=== PATIENT | male | born 1965 ===

== ENCOUNTER → 2016-04-14 | Day surgery (SDC) | payer MEDICARE, MEDICAID ==
--- NOTE | 2016-04-13 19:18 | Pre-op HX & Phy Repo 2 SIG ---
DATE OF ADMISSION: 04/14/2016 DATE OF SURGERY: 04/14/2016. PREOPERATIVE DIAGNOSIS: Massive recurrent vitreous hemorrhage, right eye. BRIEF NOTE: This is one of several [facility] admissions for this patient, who is a very nice 50-year-old gentleman with a long history of severe proliferative diabetic retinopathy. The patient has undergone extensive laser treatment in both eyes and vitrectomy surgery in the right eye in June 2014. He has done well since that time, but over the last few weeks developed a severe recurrence of his proliferative retinopathy and massive fall off vision. He is admitted for repeat vitrectomy on the right. PAST OCULAR HISTORY: Remarkable for prior injections as recently as two weeks ago with little clearing of the hemorrhage. PAST MEDICAL HISTORY: Remarkable for diabetes for at least 15 years. He has been on dialysis for the last several years. He had an amputation of the right leg in 2011. MEDICATIONS: Travatan as well as NovoLog insulin, vitamin D, and renal caps. ALLERGIES: He has no known allergies. PHYSICAL EXAMINATION: Best vision at admission was light perception with projection in the right eye and 20/30 in the left with pressures of 14 and 13. The anterior segments were quiet except for moderate nuclear sclerosis with cortical opacification, worse on the right. Fundus exam of the right eye could not be seen secondary to the dense vitreous hemorrhage. Ultrasonography showed the retina to be all attached with only diffuse hemorrhage in the posterior pole that was freely mobile. The left fundus showed extensive pattern of panretinal laser with the retina all attached. General physical examination be updated by Dr. Mobley. ASSESSMENT: 1. Dense recurrent vitreous hemorrhage, right eye. 2. Moderate cataracts both eyes. PLAN: The plan is to perform a pars plana vitrectomy with washout, extensive endolaser, membrane dissection as needed, and Avastin injection. The risks and benefits of surgery gone over the patient with potential infection, hemorrhage, worsening of the cataract, retinal detachment, remote possibility of loss of the eye. The risk of anesthesia was also discussed. The patient understands and consents to the surgery, which will be performed on tomorrow morning. Laz Perry M.D. DR: HERMAN JOB#: [id number] CC:
[2016-04-14] VITALS (8 sets, daily range): BP systolic 146–196; BP diastolic 80–99
[~2016-04-14] VITALS: Ht 177.8 cm; Wt 86.2 kg
[~2016-04-14] MED LIST: Alfentanil 2ml Inj ONE; Atropine Inj 1mg/10ml Syr IV PRN; Atropine Sulfate 3.5gm Oint ONE; Avastin 10mg Inj IVITRE ONE; BSS 15ml BTL ONE; BSS 500ml btl ONE; Bupivacaine 0.75% 30ml vial INJ ONE; CATAPRES0.1 MG ORAL; Cyclopentolate 1% Opth Sol ONE; Dexamethasone 4mg/ml vial ONE; DiphenhydrAMINE 50mg/ml Inj IVP PRN; EPINEPHrine 1mg/1ml Amp ONE; Flurbiprofen 0.03% Opth Sol 2.5ml ONE; Gatifloxacin Opth Solution 0.5% ONE; HUMALOG100 UNIT/4 SUBQ; Hydromorphone 0.5mg/0.5ml inj IVP PRN; Kenalog-10 5ml Inj ONE; Kenalog-40 1ml Vial ONE; Ketorolac 30mg Inj IV PRN; Ketorolac 60mg Inj IV PRN; LEVEMIR100 UNIT/1 SUBQ; LORazepam Inj 2mg/ml 1ml IV PRN; LR 1000ml 1,000 ML IVLG SCH; LR 1000ml ONE; Lidocaine 1% MPF 10mg/ml 5ml ONE; Lidocaine 2% MPF 5ml Vial INJ ONE; Maxitrol Opth Oint 3.5gm ONE; Meperidine 25mg/ml Inj IV PRN; Metoclopramide 10mg/2ml Inj IVP PRN; Midazolam 2mg/2ml Inj IVP PRN; Midazolam 2mg/2ml Inj ONE; NEPHROVITE1 TAB ORAL; NOVOLOG100 UNIT/3 SUBQ; NS Irrig 1000ml ONE; Norco 5mg/325mg tab ORAL PRN; Norco 7.5mg/325mg tab ORAL PRN; Oxycodone/Acetaminophen 5-325 ORAL PRN; Phenylephrine 2.5% Op Soln ONE; Povidone-Iodine 5% opth solution ONE; Pred Forte 1% Opth Susp 1ml ONE; Pred Forte 1% Opth Susp 1ml RIGHT EYE ONE; Propofol 10mg/ml 20ml IV ONE; Sterile Water Irrig 1000ml IRRIG ONE; Tetracaine 0.5% Opth Soln ONE; fentaNYL 100 mcg/2 mL IV PRN
[2016-04-14] MEDS: Cyclopentolate 1% Opth Sol RIGHT EYE SCH ×3 (07:17→07:34)
[2016-04-14] MEDS: Phenylephrine 2.5% Op Soln RIGHT EYE SCH ×3 (07:17→07:34)
[2016-04-14] MEDS: Flurbiprofen 0.03% Opth Sol 2.5ml RIGHT EYE SCH ×3 (07:17→07:34)
[2016-04-14] MEDS: Gatifloxacin Opth Solution 0.5% RIGHT EYE SCH ×3 (07:18→07:34)
[2016-04-14 07:40] LABS: BASOPHILS % (AUTO) 0.7 % (0.0-2.0); EOSINOPHILS % (AUTO) 6.5 % (0.0-3.0); LYMPHOCYTES % (AUTO) 23.1 % (20.0-45.0); MEAN CORPUSCULAR HEMOGLOBIN 32.4 PG (27.0-31.0); MEAN CORPUSCULAR HGB CONC 33.3 G/DL (32.0-36.0); MEAN CORPUSCULAR VOLUME 97 FL (80-99); MEAN PLATELET VOLUME 6.5 FL (6.5-10.1); MONOCYTES % (AUTO) 7.7 % (1.0-10.0); NEUTROPHILS % (AUTO) 62.1 % (45.0-75.0); PLATELET COUNT 202 K/UL (150-450); RED BLOOD COUNT 3.81 M/UL (4.70-6.10); RED CELL DISTRIBUTION WIDTH 12.2 % (11.6-14.8); WHITE BLOOD COUNT 9.6 K/UL (4.8-10.8)
[2016-04-14 07:44] LABS: CALCIUM 8.7 mg/dL (8.6-10.2); CREATININE 5.5 mg/dL (0.7-1.2); GLOMERULAR FILTRATION RATE 11.1 mL/min (>60); POTASSIUM 4.6 mEQ/L (3.4-4.9)
--- NOTE | 2016-04-14 07:53 | Pre-Procedure Note/Attestation ---
Pre-Procedure Note/Attestation Complete Prior to Procedure Planned Procedure: right Procedure Narrative: PPV, endolaser, membrane peel, Avastin OD Indications for Procedure Pre-Operative Diagnosis: Recurrent vitreous heme OD Attestation I attest that I discussed the nature of the procedure; its benefits; risks and complications; and alternatives (and the risks and benefits of such alternatives ), prior to the procedure, with the patient (or the patient's legal product representative). I attest that, if there was a reasonable possibility of needing a blood transfusion, the patient (or the patient's legal product representative) was given the [facility] standardized written summary, pursuant to the Anupam Rocio Blood Safety Act ([place] Health and Safety Code # 1645, as amended). I attest that I re-evaluated the patient just prior to the surgery and that there has been no change in the patient's H&P, except as documented below: BLAYNE MIKE Apr 14, 2016 07:53
--- NOTE | 2016-04-14 10:15 | Anethesia Preoperative Eval ---
Anesthesia Pre-op PMH/ROS General Date of Evaluation: Apr 14, 2016 Time of Evaluation: 10:04 Anesthesiologist: Greta ASA Score: ASA 3 Mallampati Score Class I : Soft palate, uvula, fauces, pillars visible Class II: Soft palate, uvula, fauces visible Class III: Soft palate, base of uvula visible Class IV: Only hard plate visible Mallampati Classification: Class III Surgeon: Orlando Diagnosis: Vitreous Hemorrhage OD Surgical Procedure: Vitrectiomy OD Anesthesia History: none Social History: smoking Family History: no anesthesia problems Allergies: Coded Allergies: No Known Allergies (Verified , 09/19/09) Medications: see eMAR Past Medical History Cardiovascular: Reports: HTN Pulmonary: Reports: other - Smoker Gastrointestinal/Genitourinary: Reports: ESRD Endocrine: Reports: DM HEENT: Reports: cataract (L), cataract (R), glaucoma Hematology/Immune: Reports: anemia PSxH Narrative: BKA, Shunts Anesthesia Pre-op Phys. Exam Physician Exam Last Vital Signs Date Time Temp Pulse Resp B/P Pulse Ox O2 Delivery O2 Flow Rate FiO2 04/14/16 07:44 97.8 77 17 154/99 99 Room Air Constitutional: NAD Neurologic: CN 2-12 intact Cardiovascular: RRR Respiratory: CTA Gastrointestinal: S/NT/ND Airway Exam Mallampati Score: Class III MO: full ROM: full Teeth: intact Anesthesia Pre-op A/P Labs Hematology Test 04/14/16 07:00 White Blood Count 9.6 K/UL (4.8-10.8) Red Blood Count 3.81 M/UL (4.70-6.10) L Hemoglobin 12.3 G/DL (14.2-18.0) L Hematocrit 37.1 % (42.0-52.0) L Mean Corpuscular Volume 97 FL (80-99) Mean Corpuscular Hemoglobin 32.4 PG (27.0-31.0) H Mean Corpuscular Hemoglobin Concent 33.3 G/DL (32.0-36.0) Red Cell Distribution Width 12.2 % (11.6-14.8) Platelet Count 202 K/UL (150-450) Mean Platelet Volume 6.5 FL (6.5-10.1) Neutrophils (%) (Auto) 62.1 % (45.0-75.0) Lymphocytes (%) (Auto) 23.1 % (20.0-45.0) Monocytes (%) (Auto) 7.7 % (1.0-10.0) Eosinophils (%) (Auto) 6.5 % (0.0-3.0) H Basophils (%) (Auto) 0.7 % (0.0-2.0) Chemistry Test 04/14/16 07:00 Sodium Level 139 mEQ/L (135-145) Potassium Level 4.6 mEQ/L (3.4-4.9) Chloride Level 91 mEQ/L (98-107) L Carbon Dioxide Level 35 mEQ/L (20-30) H Anion Gap 13 (5-15) Blood Urea Nitrogen 28 mg/dL (7-23) H Creatinine 5.5 mg/dL (0.7-1.2) H Estimat Glomerular Filtration Rate 11.1 mL/min (>60) Glucose Level 164 mg/dL (74-106) H Calcium Level 8.7 mg/dL (8.6-10.2) Risk Assessment & Plan Assessment: ASA 3 Plan: GA Status Change Before Surgery: Ramakrishna Martins MD Apr 14, 2016 10:15
--- NOTE | 2016-04-14 10:27 | Immediate Post-Op Evaluation ---
Immediate Post-Op Evalulation Immediate Post-Op Evalulation Procedure: Vitrectomy OD Date of Evaluation: Apr 14, 2016 Time of Evaluation: 10:59 IV Fluids: 400 NS Blood Products: 0 Estimated Blood Loss: 1 Urinary Output: 0 Blood Pressure Systolic: 146 Blood Pressure Diastolic: 95 Pulse Rate: 74 Respiratory Rate: 16 O2 Sat by Pulse Oximetry: 96 Temperature (Fahrenheit): 97.2 Pain Score (1-10): 1 Nausea: No Vomiting: No Complications 0 Patient Status: awake, reacts, patent, none Hydration Status: adequate Ramakrishna Hernandes MD Apr 14, 2016 10:27
--- NOTE | 2016-04-14 10:28 | 48 Hour Post Anesthesia Eval ---
Post Anesthesia Evaluation Procedure: Vitrectomy OD Date of Evaluation: Apr 14, 2016 Time of Evaluation: 13:08 Blood Pressure Systolic: 198 0: 87 Pulse Rate: 78 Respiratory Rate: 19 Temperature (Fahrenheit): 98 O2 Sat by Pulse Oximetry: 97 Airway: patent Nausea: No Vomiting: No Pain Intensity: 1 Hydration Status: adequate Cardiopulmonary Status: Stable Mental Status/LOC: patient returned to baseline Follow-up Care/Observations: 0 Post-Anesthesia Complications: 0 Follow-up care needed: ready to discharge Ramakrishna Hernandes MD Apr 14, 2016 10:28
--- NOTE | 2016-04-14 10:51 | Brief Operative Note ---
Immediate Post Operative Note Operative Note Chief Complaint: Clouds in vision R eye Pre-op Diagnosis: Recurrent vitreous heme OD Procedure: PPV, Endodaser 724 spots, Avastin injection 1.25 mg R eye Post-op Diagnosis: same as pre-op Surgeon: lissa Anesthesiologist: Jori Anesthesia: MAC Specimen: none Complications: none Condition: stable Estimated Blood Loss: none Drains: none Implant(s) used?: No BLAYNE MIKE Apr 14, 2016 10:51
[2016-04-14] MEDS: Labetalol 5mg/ml 20ml vial IV PRN ×2 (11:05→11:20)
--- NOTE | 2016-04-14 16:38 | Operative Note - Dictated ---
DATE OF OPERATION: 04/14/2016 PREOPERATIVE DIAGNOSIS: Vitreous hemorrhage, recurrent right eye. POSTOPERATIVE DIAGNOSIS: Vitreous hemorrhage, recurrent right eye. PROCEDURES: 1. Pars plana vitrectomy. 2. Vitreous washout. 3. Endolaser. 4. Avastin injection, right eye. SURGEON: Laz Perry M.D. AMMUNITION ASSEMBLY LABORER: None. ANESTHESIA: Local sedation. ANESTHESIOLOGIST: Dr. Hernandes. JUSTIFICATION FOR SURGERY: This 50-year-old gentleman with a long history of diabetic retinopathy and a prior vitrectomy developed a severe nonclearing vitreous hemorrhage in the right eye. BRIEF NOTE: The patient was brought to the operating room, placed on operating room table in supine position. After a time-out was performed and agreed upon by the staff and initial monitoring, he was secured by Dr. Hernandes a retrobulbar and Van Lint blocks were given in the standard way. When the blocks taken effect, he was prepped and draped in normal manner. A lid speculum inserted into the right eye. Using a 23-gauge trocar system cannulas were placed in all except infranasal quadrant. Infusion secured inferotemporally. Vitrectomy was begun posterior to the lens implant. Adherent vitreous and blood were removed followed by a peripheral vitrectomy leaving a small vitreous skirt. A very large amount of blood on the posterior surface of the retina was gently evacuated. Extensive endolaser was seen, but scleral depression showed far peripheral areas that were lightly treated. The endolaser was then brought to the eye and using a power of 0.3 veliz and duration 0.2 seconds, a total of 724 lesions were applied in the far periphery with the aid of scleral depression. No problems were encountered. The endolaser and a superior cannulas were then removed from the eye. Through the infusion cannula, a total of 1.25 mg of Avastin were injected. The eye was reinflated and this cannula were was removed. The wounds were noted to be self-sealing. Subconjunctival Decadron and gentamicin were then injected inferiorly and Maxitrol and atropine ointments were instilled. The eye was patched and shield placed and the patient was taken to recovery in excellent condition. There were no complications. Laz Perry M.D. DR: HERMAN JOB#: [id number] CC: Laz Perry M.D.
--- NOTE | 2016-04-14 17:17 | Pre-op HX & Phy Repo 2 SIG ---
DATE OF ADMISSION: 04/14/2016 REASON FOR EVALUATION: I was asked by Dr. Laz Perry to see this 50-year-old male, who is going for elective surgery of the right eye. The patient has vitreous hemorrhage, right eye. The patient was examined. Chart was reviewed. PAST MEDICAL HISTORY/REVIEW OF SYSTEMS: Remarkable for insulin-dependent diabetes mellitus, hypertension, and end-stage renal disease. The patient is on dialysis, last done yesterday, 04/13/2016. The patient denies history of heart attack, chest pain, or palpitation. No history of respiratory problem. No asthma or bronchitis. No history of stroke or seizures. No history of thyroid problem. No. PAST SURGICAL HISTORY: Right below-knee amputation five years ago and left arm AV shunt. FAMILY HISTORY: Mother has hypertension. ALLERGIES: Not known. PRESENT MEDICATIONS: Include Levemir, Humalog, Nephro-Paulo, and clonidine p.r.n. for blood pressure above 170. HABITS: The patient smoked probably 5 years ago. Denies alcohol or street drug use. PHYSICAL EXAMINATION: GENERAL: Alert, well-developed, well-nourished, Bengali-speaking male in his 50s in no acute distress. VITAL SIGNS: Blood pressure 154/99, temperature 97.8 degrees, pulse 77, respirations 17, and O2 saturation 99% on room air. The patient's BMI is 27.3. SKIN: Pale, dry, warm. LYMPH NODES: Not enlarged. HEENT: Head normocephalic, atraumatic. Ears clear. Eyes, full description per Dr. Laz Perry. Mouth, clear and moist. No dentures. NECK: Supple. No jugular vein distention. Carotids artery +2. Trachea midline. CHEST: No deformity or asymmetry. LUNGS: Clear to auscultation and percussion. No rales or rhonchi. HEART: Sinus rhythm. No ectopy. No murmur. No S3 or S4. ABDOMEN: Soft, benign. No palpable mass. No rebound. EXTREMITIES: Right below-knee amputation and left arm AV shunt. No edema or calf tenderness. No varicose veins on the left side. GENITOURINARY TRACT: Normal for gender. No dysuria. No CVA tenderness. The patient is on hemodialysis. NERVOUS SYSTEM: No tremor. No nystagmus. LABORATORY AND DIAGNOSTIC DATA: ECG, normal sinus rhythm, rate 76 per minute, normal ECG. The patient did not eat or drink from 8 p.m. last night. Blood sugar today is 144 mg/dL. IMPRESSION: 1. Vitreous hemorrhage, right eye. 2. Insulin-dependent diabetes mellitus. 3. End-stage renal disease, on hemodialysis, last done 04/13/2016. 4. Hypertension. PLAN: Pars plana vitrectomy, 25G membrane peeling, right eye per Dr. Laz Perry. CONCLUSION: The patient's blood pressure not completely controlled. He has dialysis and during dialysis, according to the patient, blood pressure dropped to low level. The patient's diabetes is fairly controlled. Diabetes is complicated with vitreous hemorrhage and peripheral vascular disease. The patient's EKG is normal. The patient did not eat or drink from last night. The patient's condition optimized for surgery. Thank you very much, Dr. Perry, for privilege to participate in presurgical care of this interesting patient. Susan Mobley M.D. DR: Marcela JOB#: [id number] CC:
--- NOTE | 2016-05-11 15:45 | Cardiology Report ---
APPROVED REPORT EKG Measurement Heart [id number] Normal sinus rhythm Normal ECG
== END | disposition home or self-care (01) ==
LOC: SUR 06:08
DX: H43.11 Vitreous hemorrhage, right eye (principal); E10.3591 Type 1 diabetes mellitus with proliferative diabetic retinopathy without macular edema, right eye; H26.9 Unspecified cataract; E10.22 Type 1 diabetes mellitus with diabetic chronic kidney disease; I12.0 Hypertensive chronic kidney disease with stage 5 chronic kidney disease or end stage renal disease; N18.6 End stage renal disease; Z99.2 Dependence on renal dialysis; Z79.4 Long term (current) use of insulin; D64.9 Anemia, unspecified; Z89.519 Acquired absence of unspecified leg below knee; Z87.891 Personal history of nicotine dependence
CPT/HCPCS: 36415; 67039; 80048; 82962; 85025; 93005; J0171; J1100; J2250; J2704; J3301; J3470; J3490; J7120; J9035; 94003; 94150